=== PATIENT | male | born 1985 | race Caucasian/White ===

== ENCOUNTER 2024-08-20 13:31 | Emergency (ER) | payer OTHER ==
--- NOTE | 2024-08-20 13:49 | ED ---
Lower Extremity Injury HPI - General Stated Complaint: Fall-R ankle injury Time Seen by Provider: 08/20/24 13:48 Source: patient, family, RN notes reviewed Mode of arrival: wheelchair Limitations: physical limitation - History of Present Illness Initial Comments: 39-year-old male presented to the ER for evaluation of right ankle injury. Patient states yesterday he accidentally slipped on ice and broke his ankle. He was seen at [facility] and had x-rays performed and splint placed. Patient states he needs an orthopedic follow-up as a referral could not be given from [facility]. He denies any new injuries or traumas. No paresthesias. Pain is controlled with [id number] medications. Patient states he is prescribed [place] by [facility] but has not taking these as his pain has been controlled. No other complaints at this time. - Related Data Allergies Allergy/AdvReac Type Severity Reaction Status Date / Time No Known Allergies Allergy Verified 08/20/24 14:13 Review of Systems ROS Statement: Those systems with pertinent positive or pertinent negative responses have been documented in the HPI. ROS Other: All systems not noted in ROS Statement are negative. General Exam - General Exam Comments Initial Comments: Visual Physical Exam Vital signs reviewed General: Well-appearing, nontoxic, no acute distress. Head: Normocephalic, atraumatic Eyes: PERRLA, EOMI ENT: Airway patent Chest: Nonlabored breathing Skin: No visual rash, normal skin tone Neuro: Alert and oriented 3 Musculoskeletal: No gross abnormalities white splint noted to right ankle Limitations: no limitations General appearance: alert, in no apparent distress Respiratory exam: Present: normal lung sounds bilaterally. Absent: respiratory distress, wheezes, rales, rhonchi, stridor Cardiovascular Exam: Present: regular rate, normal rhythm, normal heart sounds. Absent: systolic murmur, diastolic murmur, rubs, gallop, clicks Extremities exam: Present: normal capillary refill (2+ right DP pulse. Nonpitting edema noted to foot. Stirup splint in place plan. Brisk cap refill.) Neurological exam: Present: alert, oriented X3, CN II-XII intact Skin exam: Present: warm, dry, intact, normal color. Absent: rash Course Vital Signs 08/20/24 08/20/24 14:08 16:05 Temperature 98.6 F 98.1 F Pulse Rate 104 H 71 Respiratory 18 18 Rate Blood Pressure 138/81 133/70 O2 Sat by Pulse 99 98 Oximetry Medical Decision Making - Medical Decision Making I performed the quick note portion of this chart. Electronically signed by FLAKITO De Leon-C Was pt. sent in by a medical professional or institution ([facility], [facility], urgent care, hospital, or long term...) When possible be specific @ -No Did you speak to anyone other than the patient for history (EMS, parent, family, police, friend...)? What history was obtained from this source @ -Patient's significant other, at bedside, aiding in HPI and past medical history. Did you review nursing and triage notes (agree or disagree)? Why? @ -I reviewed and agree with nursing and triage notes Were old charts reviewed (outside hosp., previous admission, EMS record, old EKG, old radiological studies, urgent care reports/EKG's, long term records)? Report findings @ -X-rays reviewed from [facility] completed on 08-19-2024. Showing a r ight lateral malleoli are fracture along with a right medial malleoli are fracture. Differential Diagnosis (chest pain, altered mental status, abdominal pain women, abdominal pain men, vaginal bleeding, weakness, fever, dyspnea, syncope, headache, dizziness, GI bleed, back pain, seizure, CVA, palpatations, mental health, musculoskeletal)? @ -Differential Musculoskeletal: Muscular strain, contusion, ligament sprain, fracture, arthritis, septic arthritis, bursitis, cellulitis, muscle spasm, nerve compression, DVT, arterial occlusion, herpes zoster, electrolyte abnormality, tumor.... This is not meant to be in all inclusive list EKG interpreted by me (3pts min.). @ -None done X-rays interpreted by me (1pt min.). @ -None done CT interpreted by me (1pt min.). @ -None done U/S interpreted by me (1pt. min.). @ -None done What testing was considered but not performed or refused? (CT, X-rays, U/S, labs)? Why? @ -Patient refused splint removal fro skin check. he stated it will cause him t oo much pain. What meds were considered but not given or refused? Why? @ -None Did you discuss the management of the patient with other professionals (professionals i.e. , PA, P[employer], lab, RT, psych nurse, mental health social worker, industrial security analyst, teacher, financial aid officer, caseworker intake)? Give summary @ -No Was smoking cessation discussed for >3mins.? @ -No Was critical care preformed (if so, how long)? @ -No Were there social determinants of health that impacted care today? How? (Homelessness, low income, unemployed, alcoholism, drug addiction, transportation, low edu. Level, literacy, decrease access to med. care, prison, rehab)? @ -No Was there de-escalation of care discussed even if they declined (Discuss DNR or withdrawal of care, Hospice)? DNR status @ -No What co-morbidities impacted this encounter? (DM, HTN, Smoking, COPD, CAD, Cancer, CVA, ARF, Chemo, Hep., AIDS, mental health diagnosis, sleep apnea, morbid obesity)? @ -None Was patient admitted / discharged? Hospital course, mention meds given and route, prescriptions, significant lab abnormalities, going to OR and other pertinent info. @ -Discharge. 39-year-old male presented the ER for evaluation of right ankle injury. Patient had workup including x-rays and splint placement yesterday at [facility]. He presents today for orthopedic referral. Vitals within acceptable limits. Patient resting comfortably on stretcher. Patient refusing splint to be removed for skin evaluation. He is neurovascularly intact. I reviewed x-rays completed from [facility] showing a bimalleolar fracture. Patient will be provided with crutches and orthopedics referral. Patient given IM Dilaudid for pain control in the ER. Strict return parameters discussed. Patient discharged in stable condition. Patient verbally expressed u nderstanding agree with care plan. Case discussed with ED attending, Dr. Barrera. Undiagnosed new problem with uncertain prognosis? @ -No Drug Therapy requiring intensive monitoring for toxicity (Heparin, Nitro, Insulin, Cardizem)? @ -No Were any procedures done? @ -No Diagnosis/symptom? @ -Bimalleolar fracture Acute, or Chronic, or Acute on Chronic? @ -Acute Uncomplicated (without systemic symptoms) or Complicated (systemic symptoms)? @ -Uncomplicated Side effects of treatment? @ -No Exacerbation, Progression, or Severe Exacerbation? @ -No Poses a threat to life or bodily function? How? (Chest pain, USA, CT, pneumonia, PE, COPD, DKA, ARF, appy, cholecystitis, CVA, Diverticulitis, Homicidal, Suicidal, threat to staff... and all critical care pts) @ -No - Radiology Data Radiology results: image reviewed Disposition Clinical Impression: Bimalleolar fracture Disposition: HOME SELF-CARE Condition: Stable Additional Instructions: Remain nonweightbearing on right. Follow-up with orthopedics. Return to the ER for any new or worsening concerns Is patient prescribed a controlled substance at d/c from ED?: No Referrals: None,Stated [Primary Care Provider] - 1-2 days Chago Agee MD [STAFF PHYSICIAN] - 1-2 days Forms: Area PCPs Time of Disposition: 15:39
[2024-08-20 14:13] VITALS: RESP 18
[2024-08-20] MEDS: HYDROmorphone 1 MG/ML 1 ML SYRINGE IM STA (15:53)
[2024-08-20 16:07] VITALS: BP 133/70; PULSE 71; TEMP 98.1
== END 2024-08-20 16:07 | disposition home or self-care (01) ==
LOC: EC 13:31
DX: S82.841A Displaced bimalleolar fracture of right lower leg, initial encounter for closed fracture (principal); W00.0XXA Fall on same level due to ice and snow, initial encounter
CPT/HCPCS: 99283; 96372; J1171

== ENCOUNTER 2024-08-30 11:40 | Day surgery (SDC) | payer OTHER ==
[2024-08-25 12:00] VITALS: BMI 25.3
[~2024-08-30 11:40] MED LIST: HYDROmorphone 0.5 MG/0.5 ML SYRINGE IVP PRN; LIDOCAINE 1% (10MG/ML) FOR IV START INTRADERMA PRN; MIDAZOLAM 2 MG/2 ML VIAL IV PRN; fentaNYL (PF) 50 MCG/ML 2 ML AMP IVP PRN
[2024-08-30] MEDS: LACTATED RINGERS 1,000 ML IV SCH (12:33)
[2024-08-30] MEDS: DEXAMETHASONE SOD PHOSPHATE 4 MG/ML 1 ML VIAL IV ONE (12:41)
[2024-08-30] MEDS: ONDANSETRON 4 MG/2 ML VIAL IVP ONE (12:42)
[2024-08-30] MEDS: IV FLUID CONTINUATION 1,000 ML IV ONE ×2 (12:54→14:29)
[2024-08-30] MEDS: fentaNYL (PF) 50 MCG/ML 2 ML AMP IVP ONE (13:03)
[2024-08-30] MEDS: MIDAZOLAM 2 MG/2 ML VIAL IVP ONE (13:03)
--- NOTE | 2024-08-30 13:14 | P.ANPRN ---
Procedure Note - Anesthesia - Nerve Block Performed Right Adductor Canal Single Time Out Performed: Yes Date of Procedure: 08/30/24 Procedure Start Time: 13:02 Procedure Stop Time: 13:06 Location of Patient: PreOp Indication: Acute Post-Operative Pain, Requested by Surgeon Sedation Type: Sedate with meaningful contact maintained Preparation: Sterile Prep Position: Supine Needle Types: Pajunk Needle Gauge: 21 Ultrasound used to visualize needle placement: Yes Ultrasound used to observe medication spread: Yes Injectate: 0.5% Ropivacaine (see comment for volume) (20 mL +10 mL of normal saline +4 mg dexamethasone) Blood Aspirated: No Pain Paresthesia on Injection Noted: No Resistance on Injection: Normal Image Stored and Saved: Yes Events: Uneventful and Well Tolerated
--- NOTE | 2024-08-30 13:15 | P.ANPRN ---
Procedure Note - Anesthesia - Nerve Block Performed Right Popliteal Single Time Out Performed: Yes Date of Procedure: 08/30/24 Procedure Start Time: 13:07 Procedure Stop Time: 13:12 Location of Patient: PreOp Indication: Acute Post-Operative Pain, Requested by Surgeon Sedation Type: Sedate with meaningful contact maintained Preparation: Sterile Prep Position: Left Lateral Needle Types: Pajunk Needle Gauge: 21 Ultrasound used to visualize needle placement: Yes Ultrasound used to observe medication spread: Yes Injectate: 0.5% Ropivacaine (see comment for volume) (20 mL +10 mL of normal saline +4 mg dexamethasone) Blood Aspirated: No Pain Paresthesia on Injection Noted: No Resistance on Injection: Normal Image Stored and Saved: Yes Events: Uneventful and Well Tolerated
[2024-08-30] MEDS ORDERED: DEXAMETHASONE SOD PHOSPHATE 4 MG/ML 1 ML VIAL ONE (13:26)
[2024-08-30] MEDS ORDERED: MIDAZOLAM 2 MG/2 ML VIAL ONE (13:26)
[2024-08-30] MEDS ORDERED: LIDOCAINE 1% INJ 10MG/ML (20 ML MDV) ONE (13:26)
[2024-08-30] MEDS ORDERED: ROPIVACAINE 5 MG/ML 30 ML VIAL ONE (13:26)
[2024-08-30] MEDS ORDERED: PHENYLEPHRINE-0.9% NACL SYG 1,000 MCG/10 ML SYRINGE ONE (13:26)
[2024-08-30] MEDS ORDERED: SUCCINYLCHOLINE CHLORIDE 200 MG/10 ML VIAL IV ONE (13:26)
[2024-08-30] MEDS ORDERED: PROPOFOL 10 MG/ML 20 ML VIAL IV ONE (13:26)
[2024-08-30] MEDS ORDERED: fentaNYL (PF) 50 MCG/ML 2 ML AMP ONE (13:26)
[2024-08-30] MEDS ORDERED: SODIUM CHLORIDE 0.9% (PF) 10 ML VIAL ONE (13:26)
[2024-08-30] MEDS: SODIUM CHLORIDE 0.9% 1,000 ML BAG IRRIGATION ONE (14:02)
--- NOTE | 2024-08-30 15:25 | FL ---
EXAMINATION TYPE: FL guidance operating room, XR ankle complete RT DATE OF EXAM: 08/30/2024 3:19 PM COMPARISON: Pre Operative Images if available both CT/MRI or plain film CLINICAL INDICATION: Male, 39 years old with history of Rt Ankle FX; TECHNIQUE: FL guidance operating room, XR ankle complete RT, multiple fluoroscopic images provided fo r procedure. Total fluoroscopy time: 5.48 seconds Total submitted images to PACS: 6 DAP: 0.7289 mGym2 Gycm2 uGym2 cGycm2 or equivalent. FINDINGS: Fluoroscopic images during internal fixation/arthroplasty demonstrate hardware in appropriate positio n. Hardware appears intact. No immediate complication identified. IMPRESSION: 1. No evidence for intraoperative complication. 2. Please see the operative/procedural note for further details. [facility], , 08/30/2024 3:23 PM
--- NOTE | 2024-08-30 15:41 | P.OP ---
Date of Procedure: 08/30/24 Preoperative Diagnosis: Displaced bimalleolar fracture right ankle Syndesmotic rupture right ankle Postoperative Diagnosis: Displaced bimalleolar fracture right ankle Ruptured syndesmosis right ankle Procedure(s) Performed: 1. Open reduction with internal fixation right bimalleolar ankle fracture 2. Open reduction and internal fixation of syndesmosis right ankle Implants: Loop 2.4 mm mini fragment T plate with locking and nonlocking screws Loop 3.5 mm one third tubular plate with locking and nonlocking screws Arthrex tight rope Anesthesia: LORIA Surgeon: Scott Knott Estimated Blood Loss (ml): 10 Pathology: none sent Condition: stable Disposition: PACU Description of Procedure: Prior to the patient being brought to the op room, anesthesia administered a nerve block on the operative extremity. The patient was brought into the operating room. Timeout was taken to confirm correct patient identifiers, correct laterality of surgery, and correct procedure. Once all staff in the room was in agreement with the timeout, the patient was induced and placed under general anesthesia. The patient was then rolled onto the operating table in the prone position, with appropriate padding beneath the thoracic area as well as any bony prominences. Once anesthesia was satisfied with the position of the patient, a well-padded tourniquet was placed on the thigh. The leg was then prepped and draped in the usual manner. The leg was exsanguinated, the knee flexed, and the tourniquet inflated to 250 mmHg. Attention directed over the posterior lateral ankle, where a standard posterior lateral ankle approach was made. The incision was deepened down to the subcutaneous tissue careful to identify, void, and retracting neurovascular structures and cauterize any bleeding vessels. Blunt dissection was carried down to the subcutaneous layer down to the fascia. The fascia was incised and reflected. The septum between the peroneal tendons and flexor hallucis longus muscle bellies was identified, the septum was divided and the muscles retracted medially and laterally. The peroneal tendons were sharply reflected off the posterior aspect of the fibula for axis of the fracture. The soft tissues were also raised and reflected with a elevator from the posterior aspect of the tibia for access to that fracture. 2.4 mm Loop T plate was positioned over the posterior aspect of the tibia just superior to the ankle joint. Under fluoro scopy the plate was adjusted until properly aligned and then temporarily fixated. 2.7 mm nonlocking screws were placed to the distal aspect of the plate across the fracture. Lateral view showed that the screws were superior to the joint line. Next was a nonlocking screw placed proximal to the fracture and the last was a locking screw placed proximal to the fracture. Final fluoroscopic imaging showed anatomic reduction of the posterior malleolus with proper placement of the hardware. Then attention directed to the fibular fracture. The soft tissue was reflected to expose the fracture. The hematoma and soft tissue were evacuated between the fracture fragments. The fracture was brought into alignment and temporarily clamped. A 2.4 mm cortical screw was then placed across the fracture line for interfragmentary compression and to maintain reduction of the fracture. 3.5 mm one third tubular plate was placed over the posterior aspect of the lateral malleolus. It was adjusted under fluoroscopy until aligned properly and then temporarily fixated. A distal locking screw was placed first and then a nonlocking screw was placed proximal and the plate to conform the plate to the posterior aspect of the lateral malleolus. Another locking screw was placed distal and another proximal to complete the construct. Fluoroscopic imaging showed that the alignment was properly placed on AP and lateral views and the fracture maintained reduction. Under live fluoroscopy the syndesmosis was stressed. There was some gapping of the syndesmosis and mild gapping of the medial clear space. The decision for flexible syndesmotic fixation was made. A guidewire for the Arthrex tight rope was placed over the lateral aspect of the lateral malleolus. It was directed from lateral to medial and slightly anterior avoiding the other fixation. The guidewire passed through the area, avoiding the fixation, and exiting out the medial tibial cortex. Drilling over the wire was then performed until the medial cortex was breached. The wire was removed and then the tight rope inserted until the button was clear of the medial tibial cortex. The button was deployed and the manipulated flat against the tibia. Then the pin inserter was removed. The ankle was maximally dorsiflexed and lateral but was tight against the fibula. Stress testing was repeated that showed no excessive motion of the syndesmosis and no gapping of the of the medial clear space. The wound was then thoroughly irrigated with antibiotic saline. The intermuscular septum was repaired with 2-0 Vicryl. Deep fascia was closed with 2-0 Vicryl. Subcutaneous closure was done with 3-0 Monocryl. And skin closure was done with 4-0 Stratafix in a running subcuticular manner. The incision for the placement of the tight rope was also closed with 3-0 Monocryl. Dermal glue was placed across all the incisions and allowed to dry. Steri-Strips were placed over the incision. The incision was covered jumpstart and then a bulky dry dressing. The tourniquet was released and capillary refill returned all digits on the foot. And the patient was placed in a well-padded, well molded plaster posterior mold/sugar-tong splint. Ankle was held in neutral position as the splint was dried. Then the patient was rolled onto the transfer table back into the supine position. Anesthesia was reversed and the patient taken recovery with vital signs stable
[2024-08-30 15:44] VITALS: TEMP 97
[2024-08-30 15:54] VITALS: RESP 14
[2024-08-30] MEDS: HYDROcodone/APAP 5-325MG 1 EACH TAB PO STA (16:24)
[2024-08-30 16:45] VITALS: BP 154/90; PULSE 89
== END 2024-08-30 16:55 | disposition home or self-care (01) ==
LOC: OR 11:40
PROVIDERS: ATTEND Podiatrist
DX: S82.841A Displaced bimalleolar fracture of right lower leg, initial encounter for closed fracture (principal); S93.431A Sprain of tibiofibular ligament of right ankle, initial encounter; S93.421A Sprain of deltoid ligament of right ankle, initial encounter; I10 Essential (primary) hypertension; F17.200 Nicotine dependence, unspecified, uncomplicated; F12.90 Cannabis use, unspecified, uncomplicated; Z79.899 Other long term (current) drug therapy; X58.XXXA Exposure to other specified factors, initial encounter
CPT/HCPCS: 73610; 27814; 27829; 64445; 64447; J2250; J1100; J0690; J2405; J3010